=== PATIENT | male | born 1985 ===

== ENCOUNTER 2023-07-30 07:47 | Day surgery (SDC) | payer OTHER ==
[2023-07-26 16:04] VITALS: BMI 27.4
[2023-07-30] MEDS ORDERED: Vancomycin 1 GM VIAL ONE (08:26)
[2023-07-30] MEDS ORDERED: CEFAZOLIN 2 GM VIAL ONE (10:21)
[2023-07-30] MEDS ORDERED: Sodium Chloride 0.9% 100 ML ONE (10:21)
[2023-07-30 10:30] LABS: #Eosinphils 0.1 thou/uL (0.0-0.7); #Monocytes 0.6 thou/uL (0.11-0.59); #Neutrophils 2.6 thou/uL (1.40-6.50); %Basophils 0.9 % (0.0-1.0); %Eosinophils 2.8 % (0.0-10.0); %Lymphocytes 27.9 % (21.0-51.0); %Monocytes 12.2 % (0.0-10.0); Hematocrit 48.6 % (42.0-52.0); Hemoglobin 16.3 g/dL (14.0-18.0); Mean Corpuscular HGB CONC 33.5 g/dL (32.0-36.0); Mean Corpuscular Hemoglobin 29.6 pg (27.0-31.0); Mean Corpuscular Volume 88.4 fl (78.0-98.0); Mean Platelet Volume 11.8 fL (7.4-10.4); Platelet Count 220 10x3/uL (130-400); RBC Distribution Width 12.8 % (11.5-14.5); White Blood Cell (WBC) Count 4.7 10x3/uL (4.8-10.8)
[2023-07-30 10:38] LABS: Anion Gap 12 mmol/L (10-20); BUN (Urea Nitrogen) 13 mg/dL (8.9-20.6); Calc. Creatinine Clearance 123 mL/min (70-130); Calcium 9.5 mg/dL (7.8-10.44); Carbon Dioxide 26 mmol/L (22-29); Chloride 107 mmol/L (98-107); Estimated GFR 112; Glucose 97 mg/dL (70-105); Potassium 3.7 mmol/L (3.5-5.1); Sodium 141 mmol/L (136-145)
[2023-07-30] MEDS ORDERED: fentaNYL PF 100 MCG/2 ML SYRINGE ONE (10:40)
[2023-07-30] MEDS ORDERED: HYDROmorphone 0.5 MG/0.5 ML SYRINGE ONE (10:41)
[2023-07-30] MEDS ORDERED: Rocuronium Bromide 10 MG/ML (10ML VIAL) ONE (10:43)
[2023-07-30] MEDS ORDERED: Ondansetron PF 4 MG/2 ML Vial ONE (10:43)
[2023-07-30] MEDS ORDERED: Ketorolac Tromethamine 30 MG/ML VIAL ONE (10:43)
[2023-07-30] MEDS ORDERED: PROPOFOL 200 MG/20 ML VIAL ONE (10:43)
[2023-07-30] MEDS ORDERED: Lidocaine 1% PF 5 ML VIAL ONE (10:43)
[2023-07-30] MEDS ORDERED: Dexamethasone 20 MG/5 ML VIAL ONE (10:43)
[2023-07-30] MEDS ORDERED: Glycopyrrolate 0.2 MG/ML 5 ML SYRINGE ONE (10:43)
[2023-07-30] MEDS ORDERED: NEOSTIGMINE 3 MG/3 ML SYR 3 MG/3 ML SYRINGE ONE (10:43)
[2023-07-30] MEDS ORDERED: Promethazine HCl 25 MG/ML VIAL IM PRN (11:32)
[2023-07-30] MEDS ORDERED: Ondansetron HCl/PF 4 MG/2 ML Vial IVP PRN (11:32)
[2023-07-30] MEDS ORDERED: PACU-Morphine 4MG/ML VIAL SLOW IVP PRN (11:32)
[2023-07-30] MEDS ORDERED: HYDROmorphone 2 MG/ML VIAL SLOW IVP PRN (11:32)
[2023-07-30] MEDS ORDERED: fentaNYL 50 mcg/mL 1 mL Vial ONE ×3 (12:47→13:18)
[2023-07-30] MEDS ORDERED: Morphine 4 MG/ML VIAL ONE (12:49)
[2023-07-30] MEDS ORDERED: Cyclobenzaprine 10 MG TAB ONE (12:54)
[2023-07-30] MEDS ORDERED: Morphine 2 MG/ML VIAL ONE ×2 (13:13→13:23)
[2023-07-30] MEDS ORDERED: HYDROcodone/Acetaminophen 10/325 mg Tablet ONE ×2 (14:46→15:46)
[2023-07-30] MEDS ORDERED: Promethazine HCl 25 MG/ML VIAL ONE (15:22)
== END 2023-07-30 15:47 | disposition home or self-care (01) ==
LOC: SDC 07:47
PROVIDERS: ATTEND Neurological Surgery
PROC: 0SG0071 Fusion of Lumbar Vertebral Joint with Autologous Tissue Substitute, Posterior Approach, Posterior Column, Open Approach (ICD-10-PCS; principal; 2023-07-30)
DX: M43.16 Spondylolisthesis, lumbar region (principal)
CPT/HCPCS: 80048; 85025; 93005; 93010; C1713; C1889; J1100; J1170; J1885; J2270; J2272; J2405; J2550; J2704; J3010; J3370; J3490